=== PATIENT | female | born 1945 | race Caucasian/White ===

== ENCOUNTER 2025-05-13 13:02 | Outpatient (AMB) | payer OTHER, SELFPAY ==
--- NOTE | 2025-05-13 14:11 | A.OFFPC_ITS ---
Vital Signs 05/13/25 14:20 05/13/25 17:35 Height 4 ft 10.9 in Weight 197 lb 8 oz BMI 40.0 BP 140/68 H 125/68 Blood Pressure Location Rt femoral Position Sitting Respiration 16 Pulse 57 Pulse Source Pulse Oximeter Temp 97.1 F Temp Source Temporal Artery Scan Pulse Oximetry (%) 97 Oxygen Delivery Method Room Air Intake Visit Reasons: Establish care Medical Imaging Specialist Required: No Accompanied by: Self / Same As Patient Allergies ciprofloxacin (From Cipro) Allergy (Mild, Verified 05/13/25 17:35) Rash Sulfa (Sulfonamide Antibiotics) Allergy (Mild, Verified 05/13/25 17:35) Rash Medication List - Last Reconciled 05/13/25 by Kaylyn Lira PA-C aspirin 81 mg PO DAILY atorvastatin (Lipitor) 40 mg PO DAILY carvedilol 6.25 mg PO BID metformin ER (Glucophage XR) 500 mg PO DAILY mycophenolate mofetil 250 mg PO BID Tobacco use date assessed: 05/13/25 Fall risk assessment: No Falls in past year Last assessed Fall Risk: 05/13/25 Dental Screening Dental Screen Date: 05/13/25 Did you have a dental visit in the last 12 months?: Yes Did you have a dental problem in the last 6 months where you did not have access to dental care?: No Was dental information given to patient?: Patient has dentist HPI Establish care HPI Details The patient is a 79-year-old female presenting with the management of chronic conditions, including coronary artery disease and liver lesion, along with routine health maintenance. The patient has a history of coronary artery disease, which was identified following a heart attack in 2022 while residing in [place]. The heart attack was managed medically without the need for stent placement, and she is currently on aspirin, Lipitor, and carvedilol for management. She denies any history of hypertension. A liver lesion was identified during an MRI conducted on March 07, 2023, just before the patient moved to her current location. The lesion is being monitored, and the patient is advised to have follow-up imaging annually. The patient has a history of diabetes, with an A1c level of 6.6, which was confirmed during this visit. She is currently on metformin for management and reports dietary modifications to control her blood glucose levels. The patient underwent a hysterectomy at the age of 73 due to abnormal uterine bleeding, and the procedure was performed to rule out malignancy. Social History - Family: Lives near family, including david busch and grandchildren, after moving back from [place]. - Housing: Recently relocated to be clos er to family. [facility] Medical History (Updated 05/13/25 @ 17:41 by Kaylyn Lira PA-C) Type 2 diabetes mellitus with hemoglobin A1c goal of less than 7.0% Liver disease NSTEMI (non-ST elevated myocardial infarction) Coronary artery disease H/O mammogram Surgical History H/O colonoscopy Family History Father S/P 2-vessel coronary artery bypass Mother No problems noted. Other H/O mammogram Social History Housing: House Alcohol intake: current Alcohol intake frequency: does not drink Patient Tobacco Use Status: Never used Tobacco service: No Current occupational status: retired Cognitive needs: No Hearing needs: No Vision needs: Yes (rx glasses/cheaters) Questionnaire PHQ-9 Over the last 2 weeks, how often have you been bothered by any of the following problems? 1. Little interest or pleasure in doing things: not at all 2. Feeling down, depressed, or hopeless: not at all 3. Trouble falling or staying asleep, or sleeping too much: not at all 4. Feeling tired or having little energy: not at all 5. Poor appetite or overeating: not at all 6. Feeling bad about yourself - or that you are a failure or have let yourself or your family down: not at all 7. Trouble concentrating on things, such as reading the newspaper or watching television: not at all 8. Moving or speaking so slowly that other people could have noticed. Or the opposite - being so fidgety or restless that you have been moving around a lot more than usual: not at all 9. Thoughts that you would be better off or of hurting yourself in some way: not at all Total score: 0 Depression Screening Interpretation: Negative Depression Screening Done: Yes 32859 - PHQ-9 Billing: Yes Source: Developed by Drs. Saulo Bryan, Cornelia Alvares, Noel Cuevas and colleagues, with an educational john from [employer]. Thrive Questionnaire Date Thrive assessed: 05/13/25 I am a: Patient What is your living situation today?: I have a steady place to live Within the past 12 months, did the food you bought not last and you didn't have the money to get more?: Never true Within the past 12 months, did you worry whether your food would run out before you got money to buy more?: Never true Do you have trouble paying for medicines?: No Do you have trouble getting transportation to medical appointments?: No Do you have trouble paying your heating and electricity bill?: No Do you have trouble taking care of your child, family member or friend?: No Do you have trouble with day-to-day activities such as bathing, preparing meals, shopping, managing finances, etc.?: No Are you currently unemployed and looking for a job?: No Are you interested in more education?: No Please select the resources that you would like help with: None Currently or been in a relationship where the following occur: No concerns reported THRIVE Score: 0 AUDIT C Alcohol Use Questionnaire (AUDIT-C) 1. How often do you have a drink containing alcohol?: Never 3. How often do you have six or more drinks on one occasion?: Never Total Score: 0 Score Reviewed/Action Taken: No ADDISON-7 AMB Questionnaire ADDISON-7 Date ADDISON - 7 assessed: 05/13/25 Feeling nervous, anxious, or on edge: 0 = Not at all Not being able to stop or control worryin = Not at all Worrying too much about different things: 0 = Not at all Trouble relaxin = Not at all Being so restless that it is hard to sit still: 0 = Not at all Becoming easily annoyed or irritable: 0 = Not at all Feeling afraid as if something awful might happen: 0 = Not at all Total ADDISON-7 score (0-4 normal; 5-9 mild; 10-14 moderate; 15-21 severe): 0 Source: Developed by Cornelia Pederson, Noel Cuevas and colleagues, with an educational john from [employer]. ADDISON-7 Assessment Billing ADDISON-7 Assessment Tool: ADDISON-7 Assessment 18403 Review of Systems Const Details: - Cardiovascular: Denies chest pain, orthopnea, or syncope. - Gastrointestinal: Denies abdominal pain, black or bloody stools. - Genitourinary: Denies dysuria or hematuria. - Musculoskeletal: Reports occasional swelling in the left leg, denies pain. All systems reviewed & are unremarkable except as noted in HPI and below Physical exam (Primary Care) Vital Signs: Last Vital Signs Temp 97.1 F 05/13/25 14:20 Pulse 57 05/13/25 14:20 Resp 16 05/13/25 14:20 BP 140/68 H 05/13/25 14:20 Pulse Ox 97 05/13/25 14:20 Oxygen Delivery Method Room Air 05/13/25 14:20 Care Plan Goal for BP management: <140/90 at Goal BMI result Body Mass Index 40.0 BMI Assessment/Plan discussion: High BMI High, discussed plan: lifestyle, weight reduction, dietary, physical activity, alcohol moderation and other Tobacco/Smoking Status: Tobacco use Status Tobacco use date assessed 05/13/25 05/13/25 14:23 Patient Tobacco Use Status Never used Tobacco 05/13/25 14:23 PHQ-9: PHQ-9 Score PHQ-9: Total score 0 05/13/25 15:10 Depression Screening Interpretation: Negative Thrive Assessment: Date of Thrive Assessment Date Thrive assessed 05/13/25 05/13/25 14:23 Currently or been in a relationship where the following occur: No concerns reported Const Other: Appearance: Alert. Oriented X3. No acute distress. Head: Normal external exam. Normocephalic. Atraumatic. Eyes: Pupils are equal, round, and reactive to light. Extraocular movements intact. Conjunctiva and sclera normal. Eyelids normal. Ears: External auditory canal normal. Tympanic membranes normal. Throat: Pharynx normal. Uvula midline. Moist mucous membranes. Neck: Normal inspection. Neck supple. Full range of motion. No adenopathy. Thyroid Normal. No meningeal signs. No neck mass noted. Cardiovascular: Normal heart rate and rhythm. Heart sound normal. No murmurs noted. Pulses normal throughout. Blood pressure was initially 140/68, rechecked to 125/68. Respiratory: No respiratory distress. Painless inspiration. Breath sounds normal. No wheezes/rales/rhonchi noted. Chest nontender. No accessory muscle usage noted or decreased air movement noted. Abdomen: Soft and nontender. Bowel sounds normal in all 4 quadrants. No distention noted. No organomegaly noted. No visible injury noted. Back: No costovertebral angle tenderness. Full range of motion noted. Skin: Skin warm and dry. Normal skin color. Normal skin turgor. No rashes/lesions/lacerations noted. Extremities: No lower extremity edema. Extremities exhibit normal range of motion. Extremities nontender. Neuro: Oriented X 3. No motor deficit. No sensory deficit. Reflexes normal. Results AMB Hemoglobin A1c AMB Hemoglobin A1c 6.6 % Last Edit by Ye Tam MA on 05/13/25 15 :12 Results Reviewed Results Reviewed: Laboratory Last Values Hgb A1c (Clinic) 6.6 % (4.0-6.0) H 05/13/25 14:56 - Labs: A1c level of 6.6 indicating diabetes. - Imaging: MRI of the liver conducted on March 07, 2023, identified a lesion. Coding Level of Care Code New Pt Level 4 (88509) Complex EM visit Add On G2211 Diagnoses Coronary artery disease I25.10 Liver disease K76.9 Type 2 diabetes mellitus with hemoglobin A1c goal of less than 7.0% E11.9 Additional Codes PHQ-9 - 30449 - PHQ-9 Billing: Yes ([id number]) ADDISON-7 Assessment Billing - ADDISON-7 Assessment Tool: ADDISON-7 Assessment 94246 ([id number]) Time Spent (min) 50 Assessment & Plan Assessment & Plan (1) Coronary artery disease: Code(s): I25.10 - Atherosclerotic heart disease of [place] coronary artery without angina pectoris Category: Medical Plan: The patient will continue current medications including aspirin, Lipitor, and carvedilol for coronary artery disease management. A referral to a jewel stripper has been made for further evaluation and management. (2) Liver disease: Comment: Has yearly MRI's of Liver by GI Code(s): K76.9 - Liver disease, unspecified Category: Medical Plan: The liver lesion will be monitored with annual imaging as recommended by the previous GI specialist. A referral to a new coating line worker has been initiated for continued care. (3) Type 2 diabetes mellitus with hemoglobin A1c goal of less than 7.0%: Code(s): E11.9 - Type 2 diabetes mellitus without complications Category: Medical Plan: The patient will continue metformin and dietary modifications to manage diabetes. Follow-up A1c testing is recommended every three months to monitor glycemic control. Plan Plan Patient was informed and verbally consented to the use of an ambient scribe for clinic note documentation during this visit. 1. Coronary Artery Disease The patient will continue current medications including aspirin, Lipitor, and carvedilol for coronary artery disease management. A referral to a jewel stripper has been made for further evaluation and management. 2. Liver Lesion The liver lesion will be monitored with annual imaging as recommended by the previous GI specialist. A referral to a new coating line worker has been initiated for continued care. 3. diabetes The patient will continue metformin and dietary modifications to manage prediabetes. Follow-up A1c testing is recommended every three months to monitor glycemic control. During the visit, I discussed the management of coronary artery disease, emphasi zing the importance of medication adherence and the need for cardiology follow- up. We also reviewed the liver lesion monitoring plan, including annual imaging and referral to a coating line worker. For prediabetes, I advised continuing metformin and dietary modifications, with regular A1c monitoring every three months. Orders: Orders C Reactive Protein Today Z00.00 - Encounter for general adult medical examination without abnormal findings Comprehensive [place]. Panel Fast Today Z00.00 - Encounter for general adult medical examination without abnormal findings Vitamin B12 and Folate Today Z00.00 - Encounter for general adult medical examination without abnormal findings Vitamin D 25-OH Total Today Z00.00 - Encounter for general adult medical examination without abnormal findings Complete Blood Count Auto Diff Today Z00.00 - Encounter for general adult medical examination without abnormal findings Magnesium Today Z00.00 - Encounter for general adult medical examination without abnormal findings TSH reflex Free T4 Today Z00.00 - Encounter for general adult medical examination without abnormal findings Lipid Panel Today Z00.00 - Encounter for general adult medical examination without abnormal findings Liver Panel Today Z00.00 - Encounter for general adult medical examination without abnormal findings AMB Hemoglobin A1c Today Z13.9 - Encounter for screening, unspecified Referrals Gastroenterology Referral K76.9 - Liver disease, unspecified Cardiology Referral I21.4 - Non-ST elevation (NSTEMI) myocardial infarction, I25.10 - Atherosclerotic heart disease of [place] coronary artery without angina pectoris Patient Instructions: - Continue taking aspirin, Lipitor, and carvedilol as prescribed. - Schedule follow-up appointments with jewel stripper and coating line worker. - Maintain dietary modifications and monitor blood glucose levels regularly. - Return for A1c testing every three months.
[2025-05-13 14:20] VITALS: BP 140/68; PULSE 57; RESP 16; TEMP 36.2; O2SAT 97; BMI 40.0
[2025-05-13 17:35] VITALS: BP 125/68
== END 2025-05-13 15:06 | disposition home or self-care (01) ==
LOC: HO.HMCSH 13:02
PROVIDERS: PCP Internal Medicine; Visit Provider Physician Assistant Medical
DX: I25.10 Atherosclerotic heart disease of native coronary artery without angina pectoris (principal); K76.9 Liver disease, unspecified; E11.9 Type 2 diabetes mellitus without complications; Z13.9 Encounter for screening, unspecified

== ENCOUNTER → 2025-05-13 13:02 | Outpatient (BNVA) | payer MEDICARE, SELFPAY | PROVIDERS: PCP Internal Medicine; Visit Provider Physician Assistant Medical | DX: I25.10 Atherosclerotic heart disease of native coronary artery without angina pectoris (principal); I25.2 Old myocardial infarction; E11.9 Type 2 diabetes mellitus without complications; K76.9 Liver disease, unspecified | CPT/HCPCS: 83036; 96127 ==

== ENCOUNTER 2025-06-14 12:46 | Emergency (ER) | payer MEDICARE, SELFPAY ==
--- NOTE | ~2025-06-14 | CT_ITS ---
EXAMINATION: CT ABDOMEN AND PELVIS WITH CONTRAST CLINICAL INFORMATION: Left lower quadrant pain and nausea. COMPARISON: None available. TECHNIQUE: Multidetector volumetric images were obtained from the superior aspect of the liver through the pubic symphysis following administration 85 mL of Omnipaque 350 intravenous contrast. Sagittal and coronal reformatted images were obtained on the technologist's workstation. Oral contrast: No This CT examination was performed using dose optimization techniques as appropriate, variously including the following: *Automated exposure control *Adjustment of mA and/or kV according to patient size (this includes techniques or standardized protocols for targeted exams where dose is matched to indication/reason for exam; i.e. extremities or head) *Use of iterative reconstruction technique FINDINGS: LUNG BASES: Lung bases demonstrate minor scarring. There are no effusions. Heart size is normal. Small type I hiatus hernia suspected. LIVER, GALLBLADDER, AND BILIARY TREE: The liver demonstrates a somewhat macrolobulated shape suggestive of early cirrhosis. There are several small cysts present, the largest in the right hepatic lobe, segment 7, measuring 3.2 cm. There are no suspicious hepatic lesions evident. There is no intrahepatic biliary dilatation. The gallbladder is unremarkable with no evidence of radiopaque gallstones, gallbladder wall thickening, or obvious pericholecystic inflammatory changes. PANCREAS: Unremarkable. SPLEEN: Unremarkable. ADRENAL GLANDS: Unremarkable. KIDNEYS AND URETERS: There are bilateral parapelvic cysts in both kidneys. There is no hydronephrosis or hydroureter. There is a 4 mm nonobstructing calculus in the right kidney upper pole. There are 2 3 mm nonobstructing calculi in the left kidney. There is no evidence of renal mass. BLADDER: Essentially decompressed. Grossly normal. GASTROINTESTINAL TRACT: The colon is normal in course and caliber without evidence of wall thickening or inflammation. The rectum is normal. There is no CT evidence of appendicitis. Small bowel is normal in caliber and course, with normal appearance. The stomach is somewhat decompressed. The duodenum is normal. ABDOMINAL WALL: No significant hernia is appreciated. LYMPH NODES: There is no abnormal lymphadenopathy present. VASCULAR: Mild to moderate atheromatous calcification of the aorta and iliac arteries. There is no aneurysm. PELVIC VISCERA: There has been a hysterectomy. There are no adnexal masses. OSSEOUS STRUCTURES: There is no suspicious lytic or blastic bone lesion. There are degenerative changes throughout the spine. Severe disc degeneration at L3-4 and L5-S1. Significant degenerative SI joint changes left greater than right. CT/CT abdomen pelvis w IV con IMPRESSION: 1. No acute findings in the abdomen or pelvis. 2. Nonobstructing nephrolithiasis bilaterally. 3. 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 No suspicious liver lesion. No biliary dilatation. 4. Hysterectomy. 5. Additional ancillary findings as discussed in the body of the report. Electronically signed by: Jameson Knutson MD 06/14/2025 04:40 PM EDT
[2025-06-14 12:58] VITALS: BP 152/70; PULSE 62; RESP 16; TEMP 36.6; O2SAT 96; BMI 36.9
--- NOTE | 2025-06-14 12:59 | ED.GENADULT ---
HPI - General Adult General Chief complaint: Abdominal Pain Stated complaint: left sided pain Time Seen by Provider: 06/14/25 15:33 Source: patient Mode of arrival: ambulatory Limitations: no limitations History of Present Illness ED Provider: Nura Hussein PA-C HPI narrative: 71-year-old female with history of CAD, DM 2, history of kidney stones, history of hysterectomy in the past who presents to the ER for evaluation of left lower quadrant pain that started this morning. Pain is currently an 8/10 and associated with nausea. She had a hard bowel movement yesterday, she has been constipated and having small amounts of hemorrhoidal bleeding. No fever, chills, dysuria, back pain. She did have dark urine today with small amount of blood, no clots. hx kidney stones and she reports pain was not similar to kidney stone pain. MD complaint: LLQ Pain and nausea Onset (ago): hour(s) Location: abdomen Radiation: non-radiation Severity: moderate Severity scale (1-10): 8 Quality: aching, sharp and constant Pain Consistency: constant Relieving factors: none Exacerbating factors: none Associated symptoms: nausea/vomiting Treatments prior to arrival: none Related Data Home Medications ?Medication ?Instructions ?Recorded ?Confirmed aspirin 81 mg tablet 81 mg PO DAILY 05/13/25 05/13/25 atorvastatin 40 mg tablet (Lipitor) 40 mg PO DAILY 05/13/25 05/13/25 carvedilol 6.25 mg tablet 6.25 mg PO BID 05/13/25 05/13/25 metformin 500 mg tablet,extended 500 mg PO DAILY 05/13/25 05/13/25 release 24 hr (Glucophage XR) mycophenolate mofetil 250 mg 250 mg PO BID 05/13/25 05/13/25 capsule Allergies Allergy/AdvReac Type Severity Reaction Status Date / Time ciprofloxacin (From Cipro) Allergy Mild Rash Verified 06/14/25 12:59 Sulfa (Sulfonamide Allergy Mild Rash Verified 06/14/25 12:59 Antibiotics) Review of Systems Review of Systems: Yes all other systems are reviewed and are negative [facility] Past Medical History Medical History (Updated 06/14/25 @ 17:38 by CECILIA Díaz) Type 2 diabetes mellitus with hemoglobin A1c goal of less than 7.0% Liver disease NSTEMI (non-ST elevated myocardial infarction) Coronary artery disease H/O mammogram Surgical History H/O colonoscopy Family History Family History Father S/P 2-vessel coronary artery bypass Mother No problems noted. Other H/O mammogram Social History Social History Housing: House Alcohol intake: current Alcohol intake frequency: does not drink Patient Tobacco Use Status: Never used Tobacco Smoked in Last 30 Days: No Use of substances other than those prescribed or required for medical reasons: No Advance Directives: No Advance Directives Information Provided: Yes Do you have a plan to hurt others: No Plan service: No Current occupational status: retired Cognitive needs: No Hearing needs: No Vision needs: Yes (rx glasses/cheaters) Physical Exam ED Exam Exam: Appearance: Alert. Oriented X3. No acute distress. Head: normocephalic, atraumatic. Eyes: Pupils equal, round and reactive to light. ENT: Pharynx normal. No tonsillar swelling or exudate. Neck: Normal inspection. Neck supple. CVS: Normal heart rate and rhythm. Pulses normal. Respiratory: No respiratory distress. Breath sounds normal. Abdomen: Soft with mild tenderness of the LLQ, no rebound or guarding. normal active +BS x4 Skin: Skin warm and dry. Normal skin color. Normal skin turgor. No rashes. Extremities: No lower extremity edema. No joint swelling. Neuro/psych: Oriented X 3. No motor deficit. No sensory deficit. CN II-XII intact. Normal speech and cognition. Vital Signs: Vital Signs - 24 hr 06/14/25 12:58 06/14/25 14:54 06/14/25 17:54 Temperature 97.8 F 98.2 F 98.2 F Pulse Rate 62 64 64 Respiratory Rate 16 18 18 Blood Pressure 152/70 H 155/71 H 155/71 H Pulse Oximetry 96 97 97 Oxygen Delivery Method Room Air Room Air Room Air BMI result Body Mass Index 36.9 Course Course Course Narrative: Rapid medical examination performed in triage by Sierra Azul PA-C. Patient is a 79 year old assigned female at presenting to the emergency department with left lower abdominal pain and nausea. Patient states she woke up with left lower abdominal pain and nausea that is not improving. Detailed physical exam and review of systems are deferred to the perioperative tech. Labs ordered. Patient placed back in the waiting room pending room availability and results. Medications Administered Discontinued Medications Generic Name Dose Route Start Last Admin Trade Name Gilmer PRN Reason Stop Dose Admin Sodium Chloride 1,000 mls @ 999 mls/hr 06/14/25 15:45 06/14/25 16:49 Ns IV 06/14/25 16:45 Infused .Q1H1M MADELINE Infusion Acetaminophen 1,000 mg in 100 mls @ 400 mls/hr 06/14/25 15:40 06/14/25 16:15 Ofirmev IV 06/14/25 15:54 Infused ONCE ONE Infusion Iohexol 100 ml 06/14/25 16:13 06/14/25 16:13 Iohexol 350 Mg/Ml 100 Ml Infus..Btl IV 06/14/25 16:14 85 ml ONCE ONE Administration Ondansetron HCl 4 mg 06/14/25 15:40 06/14/25 15:59 Ondansetron Hcl 4 Mg/2 Ml Vial IVPUSH 06/14/25 15:41 4 mg ONCE ONE Administration Medical Decision Making Medical Decision Making MDM Narrative: 79-year-old female presents to the ER for evaluation of left lower quadrant pain that started this morning. She was constipated yesterday and had a hard bowel movement with small amount of blood. No BM since. She has been nauseous today without vomiting. No history of diverticulitis. She reports history of small masses on her liver for which she has had multiple MRIs and follows with Gastroenterology. Today her LFTs are slightly elevated. She has no right upper quadrant pain, no epigastric pain. Low suspicion for hepatic or biliary etiology. She has some mild tenderness left lower quadrant only. No rebound or guarding. Not an acute abdomen. Her vital signs are stable. Lab workup shows a normal white blood cell count, no anemia. CT scan of the abdomen was performed which did not show any acute causes of her symptoms. She does have some small kidney stones within the kidneys. She has small amount of blood in her urine, without sign of infection. She may have transiently passed a stone which caused her symptoms. She is feeling better after fluids and Tylenol. At this time comfortable discharge home, bowel regimen encouraged, monitoring of symptoms and bland diet encouraged. She will follow-up with her mothers helper in July as scheduled. Return precautions were discussed. Stable for discharge home Differential Diagnosis Differential Diagnoses: The differential diagnosis associated with the presentation includes diverticulitis, constipation, kidney stone, UTI, pyelonephritis, colonic mass Admission/Observation Consideration of admission/observation: Escalation of care including admission/observation considered Lab Data MDM Lab Attestation statement: I reviewed the patient's lab results. elevated LFTs 06/14/25 13:06 06/14/25 13:06 Labs: Lab Results 06/14/25 06/14/25 Range/Units 13:06 15:37 WBC 7.7 (4.8-10.8) X10*3/uL RBC 5.85 H (4.20-5.50) X10*6/uL Hgb 14.3 (12.0-16.0) g/dl Hct 46.9 (37.0-47.0) % MCV 80.2 (80.0-98.0) fL MCH 24.4 L (27.0-33.0) pg MCHC 30.5 L (31.0-35.0) g/dl RDW 15.9 (11.0-16.0) % Plt Count 221 (160-400) X10*3/uL MPV 11.3 (9.4-12.3) fL Immature Gran % (Auto) 0.1 (0.0-0.4) % Neut % (Auto) 71.3 (45-73) % Lymph % (Auto) 21.3 (20-40) % [place] % (Auto) 5.0 (2-11) % Eos % (Auto) 1.8 (0-4) % Baso % (Auto) 0.5 (0-2) % Lymph # (Auto) 1.6 (1.2-4.9) X10*3/uL [place] # (Auto) 0.4 (0.1-1.2) X10*3/uL Eos # (Auto) 0.1 (0.0-0.4) X10*3/uL Baso # (Auto) 0.0 (0.0-0.2) X10*3/uL Abs Immat Gran (auto) 0.01 (0.00-0.03) X10*3/uL Absolute Neuts (auto) 5.5 (2.0-8.3) x10*3/uL Absolute Nucleated RBC 0.000 (0.0-0.012) X10*3/uL Nucleated RBC % (auto) 0.0 (0.0-0.2) /100WBC Sodium 143 (135-145) mmol/L Potassium 4.6 (3.3-5.1) mmol/L Chloride 109 H (96-108) mmol/L Carbon Dioxide 28 (22-29) mmol/L Anion Gap 11 L (12-20) BUN 19 H (9-16) mg/dL Creatinine 0.70 (0.5-1.4) mg/dL Estim Creat Clear Calc 64.3 Estimated GFR > 60 Random Glucose 153 H (60-115) mg/dL Calcium 10.2 (8.4-10.2) mg/dL Total Bilirubin 1.5 H (0.0-1.0) mg/dL AST 37 H (5-31) U/L ALT 38 H (0-31) U/L Alkaline Phosphatase 113 (39-117) U/L Total Protein 6.8 (6.5-8.0) g/dL Albumin 4.2 (3.5-5.0) g/dL Urine Color Melvin A Urine Appearance Cloudy Urine pH 5.0 (5.0-9.0) Ur Specific [place] 1.020 (1.005-1.025) Urine Protein 100 (2+) H (Neg-Trace) mg/dL Urine Glucose (UA) Negative (Negative) mg/dL Urine Ketones Negative (Negative) mg/dL Urine Blood Large (3+) H (Negative) Urine Nitrite Negative (Negative) Ur Leukocyte Esterase Small (1+) H (Negative) Urine RBC >20 H (0-2) /HPF Urine WBC 0-5 (0-5) /HPF Ur Squamous Epith Cells 6-10 (0-2) /HPF Urine Bacteria Trace (None Seen) Hyaline Casts 0-2 (0-2) /LPF Independent Interpretation I performed an independent interpretation of an: CT Scan Interpretation: no appreciated obstruction, no appreciated colonic stranding or abscess Radiology Impression Discussion of test interpretation with radiology: I have reviewed the radiologist's reading. Independent Historian Clinical information obtained from an independent historian. History obtained from or confirmed by: Spouse External Record Review External record reviewed: Prior outpatient labs Prescription Management I considered prescription management with: Pain Medication and Antibiotic Chronic Conditions Patient?s care impacted by: Diabetes Critical Care Time Critical Care Time Critical Care Time: No Discharge Plan Discharge Clinical Impression: Abdominal pain Qualifiers: Abdominal location: left lower quadrant Qualified Code(s): R10.32 - Left lower quadrant pain Patient Disposition: Home, Self-Care Instructions: Abdominal Pain (ED) Additional Instructions: Your lab work today showed mildly elevated liver testing with small amount of blood in the urine. Otherwise lab work was unremarkable. CT scan did not show any causes of the pain in her left lower abdomen. Recommend trial of bowel regimen including MiraLax, Colace, senna. Make sure you are staying hydrated. Stick to a bland diet for the next 24-48 hours, advance as tolerated. Follow-up with your GI doctor and primary care doctor. If you develop new or worsening symptoms call 911 or come back to the ER for further evaluation. Prescriptions: No Action atorvastatin [Lipitor] 40 mg tablet 40 mg PO DAILY carvedilol 6.25 mg tablet 6.25 mg PO BID Rx Instructions: must administer with a meal/food mycophenolate mofetil 250 mg capsule 250 mg PO BID aspirin 81 mg tablet 81 mg PO DAILY metformin [Glucophage XR] 500 mg tablet extended release 24 hr 500 mg PO DAILY Referrals: Kenny Luu MD [Primary Care Provider, Internal Medicine] Interventions: ED Discharge Assessment Last Done: 06/14/25 17:54 Discharge Date/Time: 06/14/25 17:55 Print Language: Ethiopian
[2025-06-14 13:12] LABS: MANUAL DIFF FLAG NO
[2025-06-14 13:14] LABS: Hematocrit 46.9 % (37.0-47.0); Hemoglobin 14.3 g/dl (12.0-16.0); Imm Gran Abs Auto 0.01 X10*3/uL (0.00-0.03); Imm Gran Pct Auto 0.1 % (0.0-0.4); Lymphocytes Absolute Auto 1.6 X10*3/uL (1.2-4.9); Mean Corpuscular HGB Conc 30.5 g/dl (31.0-35.0); Mean Corpuscular Hemoglobin 24.4 pg (27.0-33.0); Mean Corpuscular Volume 80.2 fL (80.0-98.0); NRBC Abs Auto 0.000 X10*3/uL (0.0-0.012); NRBC Pct Auto 0.0 /100WBC (0.0-0.2); Platelet Count 221 X10*3/uL (160-400); Red Blood Count 5.85 X10*6/uL (4.20-5.50); White Blood Count 7.7 X10*3/uL (4.8-10.8)
[2025-06-14 13:27] LABS: Alanine Aminotransferase 38 U/L (0-31); Albumin Level 4.2 g/dL (3.5-5.0); Alkaline Phosphatase 113 U/L (39-117); Anion Gap 11 (12-20); Aspartate Amino Transferase 37 U/L (5-31); Blood Urea Nitrogen 19 mg/dL (9-16); Calcium 10.2 mg/dL (8.4-10.2); Carbon Dioxide 28 mmol/L (22-29); Chloride 109 mmol/L (96-108); Creatinine Clr Calc Pharmacy 64.3; Estimated Glomerular Filt Rate > 60; Potassium 4.6 mmol/L (3.3-5.1); Sodium 143 mmol/L (135-145); Total Protein 6.8 g/dL (6.5-8.0)
[2025-06-14 14:54] VITALS: BP 155/71; PULSE 64; RESP 18; TEMP 36.8; O2SAT 97
[2025-06-14 16:07] LABS: Appearance Urine Cloudy; Glucose Urine UA Negative (Negative); PH 5.0 (5.0-9.0); Specific Gravity - Urine 1.020 (1.005-1.025); UMIC TRIGGER UACC YES
[2025-06-14 16:13] LABS: UACC Culture Trigger YES
[2025-06-14] MEDS: iohexoL 350 MG/ML 100 ML INFUS..BTL IV (16:13)
[2025-06-14 17:54] VITALS: BP 155/71; PULSE 64; RESP 18; TEMP 36.8; O2SAT 97
== END 2025-06-14 17:55 | disposition home or self-care (01) ==
PROVIDERS: Physician Assistant Medical; Emergency Provider Emergency Medicine; PCP Internal Medicine
DX: R10.32 Left lower quadrant pain (principal); R11.2 Nausea with vomiting, unspecified; I25.10 Atherosclerotic heart disease of native coronary artery without angina pectoris; Z79.899 Other long term (current) drug therapy
CPT/HCPCS: 36415; 74177; 80053; 81001; 81003; 85025; 87086; 96361; 96374; 96375; 99284; 99285; J0131; J2405; Q9967

== ENCOUNTER → 2025-06-14 15:40 | Outpatient (BNV) | payer MEDICARE, SELFPAY | PROVIDERS: Emergency Provider Emergency Medicine; PCP Internal Medicine; Visit Provider Radiology Diagnostic Radiology | DX: N20.0 Calculus of kidney (principal) | CPT/HCPCS: 74177 ==

== ENCOUNTER 2025-07-20 08:18 | Outpatient (REF) | payer MEDICARE, SELFPAY ==
[2025-07-20 10:16] LABS: MANUAL DIFF FLAG NO
[2025-07-20 10:41] LABS: Hematocrit 47.3 % (37.0-47.0); Hemoglobin 13.9 g/dl (12.0-16.0); Imm Gran Abs Auto 0.01 X10*3/uL (0.00-0.03); Imm Gran Pct Auto 0.1 % (0.0-0.4); Lymphocytes Absolute Auto 2.3 X10*3/uL (1.2-4.9); Mean Corpuscular HGB Conc 29.4 g/dl (31.0-35.0); Mean Corpuscular Hemoglobin 24.0 pg (27.0-33.0); Mean Corpuscular Volume 81.7 fL (80.0-98.0); NRBC Abs Auto 0.000 X10*3/uL (0.0-0.012); NRBC Pct Auto 0.0 /100WBC (0.0-0.2); Platelet Count 222 X10*3/uL (160-400); Red Blood Count 5.79 X10*6/uL (4.20-5.50); White Blood Count 6.9 X10*3/uL (4.8-10.8)
[2025-07-20 11:19] LABS: Anion Gap 9 (12-20)
[2025-07-20 11:26] LABS: Alanine Aminotransferase 49 U/L (0-31); Albumin Level 4.1 g/dL (3.5-5.0); Alkaline Phosphatase 95 U/L (39-117); Aspartate Amino Transferase 47 U/L (5-31); Blood Urea Nitrogen 23 mg/dL (9-16); Calcium 9.9 mg/dL (8.4-10.2); Carbon Dioxide 30 mmol/L (22-29); Chloride 107 mmol/L (96-108); Cholesterol 123 mg/dL (<200); Estimated Glomerular Filt Rate > 60; HDL Cholesterol 45 mg/dL (>40); Iron 99 mcg/dL (30-160); Magnesium 1.9 mg/dL (1.6-2.6); Percent Iron Saturation 38 % (15-50); Potassium 4.1 mmol/L (3.3-5.1); Sodium 142 mmol/L (135-145); Total Iron Binding Capacity 260 mcg/dL (228-428); Total Protein 6.5 g/dL (6.5-8.0); Triglycerides 82 mg/dL (<150); Unsaturated Iron Binding 161 ug/dL
[2025-07-20 11:36] LABS: Folate 9.5 ng/mL (> or = 4.0); Vitamin B12 198 pg/mL (200-900)
[2025-07-20 11:41] LABS: Ferritin 212 ng/mL (10-250)
== END 2025-07-20 08:19 | disposition home or self-care (01) ==
LOC: HO.HMGCLDS 08:18
PROVIDERS: PCP Internal Medicine; Visit Provider Physician Assistant Medical
DX: Z00.00 Encounter for general adult medical examination without abnormal findings (principal); Z13.6 Encounter for screening for cardiovascular disorders
CPT/HCPCS: 36415; 80053; 80061; 80076; 82248; 82306; 82607; 82728; 82746; 83540; 83735; 84443; 85025; 86140

== ENCOUNTER 2025-07-23 14:08 | Outpatient (AMB) | payer OTHER, SELFPAY ==
--- NOTE | 2025-07-23 14:14 | MHC.OFFVIS ---
Vital Signs 07/23/25 14:21 Height 5 ft Weight 187 lb 6.287 oz BMI 36.6 BP 142/68 H Blood Pressure Location Lt brachial Position Sitting Pulse 60 Intake Visit Reasons: Liver disease, unspecified Intake Note: New patient in office today for liver disease. CC: Patient states that she was been seen by Dr. Lee Nielson in [place] and brought her records with her. She states that Dr. Nielson was never able to figure out what exactly is wrong with her liver. Reports occasional constipation and she takes Miralax to help. Denies other GI symptoms or concerns. Home Health Care Social Worker Required: No Accompanied by: Self / Same As Patient Allergies ciprofloxacin (From Cipro) Allergy (Mild, Verified 08/16/25 11:56) Rash Sulfa (Sulfonamide Antibiotics) Allergy (Mild, Verified 08/16/25 11:56) Rash HPI HPI Liver disease, unspecified: Details: 79-year-old female here for initial evaluation of ?liver disease. ? she is referred by Kaylyn Lira. PMX Diabetes Coronary artery disease History of NSTEMI Family hx of rectal cancer - sister colon polyps nephroliltiasis * SURGICAL HISTORY Colonoscopy - @ 5 years ago Esophagogastroduodenoscopy 07/17/2024= normal esophagus, normal duodenum, focal antral erythema. Hyst Tubal ligation lithotripsy and laser stone removal Cardiac cath * ALLERGIES Cipro - Sulfa - unsure * Direct Hit LABS: 12/2023 at prior facility negative mitochondrial antibody, mildly elevated SMA 41, positive NICOLE of 1-320 homogenous elevated ferritin of 364, never get of hepatitis-B and C scan, normal alpha 1 antitrypsin, AST/ALT 144/186 normal bilirubin Laboratory Tests 05/13/25 07/20/25 14:56 08:24 WBC 6.9 Hgb 13.9 Hct 47.3 H MCV 81.7 MCH 24.0 L MCHC 29.4 L Plt Count 222 Estimated GFR > 60 Fasting Glucose 121 H Hgb A1c (Clinic) 6.6 H Ferritin 212 Total Bilirubin 1.2 H Direct Bilirubin 0.4 AST 47 H ALT 49 H Alkaline Phosphatase [address] abdomen and pelvis 06/14/2025 FINDINGS: LUNG BASES: Lung bases demonstrate minor scarring. There are no effusions. Heart size is normal. Small type I hiatus hernia suspected. LIVER, GALLBLADDER, AND BILIARY TREE: The liver demonstrates a somewhat macrolobulated shape suggestive of early cirrhosis. There are several small cysts present, the largest in the right hepatic lobe, segment 7, measuring 3.2 cm. There are no suspicious hepatic lesions evident. There is no intrahepatic biliary dilatation. The gallbladder is unremarkable with no evidence of radiopaque gallstones, gallbladder wall thickening, or obvious pericholecystic inflammatory changes. PANCREAS: Unremarkable. SPLEEN: Unremarkable. ADRENAL GLANDS: Unremarkable. KIDNEYS AND URETERS: There are bilateral parapelvic cysts in both kidneys. There is no hydronephrosis or hydroureter. There is a 4 mm nonobstructing calculus in the right kidney upper pole. There are 2 3 mm nonobstructing calculi in the left kidney. There is no evidence of renal mass. BLADDER: Essentially decompressed. Grossly normal. GASTROINTESTINAL TRACT: The colon is normal in course and caliber without evidence of wall thickening or inflammation. The rectum is normal. There is no CT evidence of appendicitis. Small bowel is normal in caliber and course, with normal appearance. The stomach is somewhat decompressed. The duodenum is normal. ABDOMINAL WALL: No significant hernia is appreciated. LYMPH NODES: There is no abnormal lymphadenopathy present. VASCULAR: Mild to moderate atheromatous calcification of the aorta and iliac arteries. There is no aneurysm. PELVIC VISCERA: There has been a hysterectomy. There are no adnexal masses. OSSEOUS STRUCTURES: There is no suspicious lytic or blastic bone lesion. There are degenerative changes throughout the spine. Severe disc degeneration at L3-4 and L5-S1. Significant degenerative SI joint changes left greater than right. CT/CT abdomen pelvis w IV con IMPRESSION: 1. No acute findings in the abdomen or pelvis. 2. Nonobstructing nephrolithiasis bilaterally. 3. 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 No suspicious liver lesion. No biliary dilatation. 4. Hysterectomy. 5. Additional ancillary findings as discussed in the body of the report. 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 Sister Breast cancer Other H/O mammogram Social History Housing: House Alcohol intake: current Alcohol intake frequency: does not drink Patient Tobacco Use Status: Never used Tobacco service: No Current occupational status: retired Cognitive needs: No Hearing needs: No Vision needs: Yes (rx glasses/cheaters) Review of Systems Const Denies fatigue, Denies fever(s), Denies night sweats, Denies poor appetite and Denies weight loss Eyes Reports requires corrective lenses ENT Reports Normal hearing present, Denies dental pain, Denies dysphagia, Denies hearing loss, Denies mouth pain, Denies odynophagia, Denies throat swelling, Denies tongue swelling and Reports other (Dentition adequate) GI Details: Denies abdominal pain, Denies melena, Denies bloating, Denies hematochezia, Denies constipation, Denies GI cramping, Denies dysphagia, Denies excessive flatus, Denies early satiety, Denies heartburn, Denies diarrhea, Denies nausea, Denies odynophagia, Denies vomiting and Denies hematemesis Skin/Breast Denies pruritus, Denies lesions, Denies rash and Denies jaundice Neuro Reports Normal hearing present and Denies Abnormal speech present Endo Denies fatigue Aller/Immun Denies throat swelling and Denies tongue swelling Physical Exam Vital Signs: Last Vital Signs Pulse 60 07/23/25 14:21 BP 142/68 H 07/23/25 14:21 BMI result Body Mass Index 36.6 Const General: cooperative, no acute distress, well developed and well groomed Nutritional Appearance: well nourished, obese and overweight Orientation/consciousness: oriented to person, oriented to place and oriented to time Limitations: No language barrier, ambulation with cane, ambulation with walker and wheelchair HEENT Head: Yes normocephalic and Yes atraumatic Eyes General: appearance normal, both eyes and all related structures Pupils: Equal, round and reactive pupils present Neck Neck: Yes normal visual inspection and Yes no lymphadenopathy Thyroid: Thyroid normal Resp Effort & Inspection: normal respiratory effort and able to speak in complete sentences Auscultation: clear to auscultation bilaterally Cardio Rate: regular rate Rhythm: regular rhythm Heart sounds: Normal, physiologic split S2 sound present Peripheral pulses: radial pulses present and posterior tibial pulses present GI Inspection: No distended, Yes Abdominal panniculus present and Yes obesity Palpation (GI): Soft to palpation, nontender, no guarding, not rigid and No hepatosplenomegaly present Percussion: Yes normal to percussion Auscultation: normal bowel sounds Rectal Exam - Female: deferred Skin General skin exam: no rashes or lesions noted, turgor normal, skin not dry, no jaundice, No spider nevi and no striae Rashes: no rashes Nails: normal Neuro General: oriented to person, oriented to place and oriented to time Cranial nerves: Yes Equal, round and reactive pupils present and Yes Normal hearing present Speech: No Abnormal speech present Extrem General: Yes normal to inspection, No clubbing, No cyanosis and No edema Psych Appearance: grossly normal and well kempt Mental Status: mental status grossly normal Speech and movement: Normal speech and movement present Affect: normal affect Attitude: cooperative Thought process: Normal thought process present and not confabulating Thought content: Normal thought content present Insight: Good insight present (Psych) Judgement: Good judgement present (Psych) Assessment & Plan Assessment & Plan (1) Transaminitis: Code(s): R74.01 - Elevation of levels of liver transaminase levels Category: Medical Plan - The patient is a 79-year-old female presenting with liver disease for evaluation and management. - Elevated liver enzymes led to imaging studies, including ultrasound and three MRIs, which have not yielded definitive diagnosis. - Autoimmune hepatitis is considered due to positive NICOLE and muscle antibodies, but a liver biopsy has not been performed. - Discussion considered prednisone for autoimmune hepatitis management; however, the patient declined steroid therapy. - Fatty liver is also considered, given familial prevalence and previous imaging. - Patient has significant comorbidities including diabetes mellitus, hypertension, and a history of NSTEMI, affecting management choices. - Schedule and undergo a liver biopsy as recommended. - Continue Mycophenolate as prescribed. - Monitor liver function tests regularly. - Maintain a balanced diet; continue avoiding alcohol. - Keep current diabetes medications and check blood sugar levels as advised by the healthcare team. - Monitor blood pressure regularly. - Make a follow-up appointment in three months to review test results and reassess treatment. - Watch for symptoms such as jaundice, persistent abdominal pain, or changes in stool color, and seek care promptly if they occur. Orders: Orders Alpha Fetoprotein 07/30/25 R74.01 - Elevation of levels of liver transaminase levels NICOLE Reflex Titer and Pattern 07/30/25 R74. - Elevation of levels of liver transaminase levels Transglutaminase IgA 07/30/25 R74.01 - Elevation of levels of liver transaminase levels Transglutaminase Ab IgG 07/30/25 R74.01 - Elevation of levels of liver transaminase levels HIV Ab/Ag 07/30/25 R74.01 - Elevation of levels of liver transaminase levels Ceruloplasmin 07/30/25 R74.01 - Elevation of levels of liver transaminase levels Prothrombin Time INR 07/30/25 R74.01 - Elevation of levels of liver transaminase levels DNA Analysis Hemochromatosis 07/30/25 R74.01 - Elevation of levels of liver transaminase levels Smooth Muscle Antibody 07/30/25 R74.01 - Elevation of levels of liver transaminase levels Mitochondrial Antibody 07/30/25 R74.01 - Elevation of levels of liver transaminase levels Liver Fibrosis Pnl 07/30/25 R74.01 - Elevation of levels of liver transaminase levels US biopsy liver 07/23/25 R74.01 - Elevation of levels of liver transaminase levels Medications: New mycophenolate mofetil 250 mg PO BID 60 caps 6RF R74.01 - Elevation of levels of liver transaminase levels Coding Level of Care Code New Pt Level 3 (93006) Diagnoses Transaminitis R74.
[2025-07-23 14:21] VITALS: BP 142/68; PULSE 60; BMI 36.6
--- OUTSIDE RECORDS SUMMARY | 2025-07-23 15:57 | XMS_ITS | Patient Health Record ---
Author Organization [facility] Billing Info Address [address] [place] [id number] Care Team Providers Care Field Interviewer Name Role Phone BRITT, FAISAL Primary Care Provider Unavailabl e Allergies Allergen (clinical drug ingredient) Drug/Non Drug Allergy documented on EMR Reaction Allergy Type Onset Date Status ciprofloxacin Cipro rash Drug Allergy Act new Sulfa itching Drug Allergy Active Reason For Referral No Information Medications Medication SIG (Take, Route, Frequency, Duration) Notes Start Date End Date Status Januvia 100 MG 1 tablet Orally Once a day for 30 day(s) Active Aspirin 81 81 MG 1 tablet Orally Once a day for 30 day(s) Active Clopidogrel Bisulfate 75 MG 1 tablet Orally Once a day for 30 day(s) Active Atorvastatin Calcium 40 MG 1 tablet Orally Once a day for 30 day(s) Active Simvastatin 10 MG 1 tablet in the even ing Orally Once a day for 30 day(s) Not-Taking Carvedilol 6.25 MG 1 tablet with food Orally Twice a day for 30 day(s) Active Biotin 5 MG 1 capsule Orally Onc e a day for 30 day(s) Active Problems Problem Type SNOMED Code ICD Code Onset Dates Problem Status W/U Status Risk Notes Problem [id number] Malignant neoplasm of endometrium (C54.1) Active confirmed Clin [facility] from low risk endometrial cancer, doing well. Plan Of Treatment Pending Test Test Name Order Date MAMMO- SCR DDI BI (26201)(TRID-MAMSCDDIB I) 11/28/2021 Insurance Providers Payer Name Payer Address Payer Phone Subscriber Number Group Number Insured Name Patient Relationship to Insured Coverage Start Date Coverage End Date [employer] P[employer] MEDICARE PLAN [address] KRISHNA BOWIE [id number] SHABANA SOLIS Self - patient is the insured Medical (General) History Medical History History ICD Code Endometrial cancer T1aN0 grade 1, no adj therapy 04/2019 Hyperlipidemia [place] 12/2021 Surgical History Surgery Date(Month/Year) Robotic hysterectomy, bso- Dr Aviva cui 04/17/19 hysteroscopy D&C 04/06/19 lithotripsy x3 Hospitalization History Reason Date(Month/Year) [place] 12/2021
== END 2025-07-23 15:19 | disposition home or self-care (01) ==
LOC: HO.HGI 14:08
PROVIDERS: PCP Internal Medicine; Visit Provider Nurse Practitioner
DX: R74.01 Elevation of levels of liver transaminase levels (principal)
CPT/HCPCS: 99203

== ENCOUNTER 2025-07-30 10:47 | Outpatient (REF) | payer OTHER, SELFPAY ==
[2025-07-30 13:14] LABS: INTERNATIONAL NORM RATIO 0.9 (0.9-1.1); Prothrombin Time 11.3 SEC (11.2-13.5)
[2025-07-30 14:53] LABS: HIV Num 1 0.05 S/CO (0.00-0.99)
[2025-08-02 22:08] LABS: Transglutaminase Ab IgG <1.0 U/mL
[2025-08-04 07:52] LABS: Anti Nuclear Antibody Pattern Nuclear, Speckled; Anti Nuclear Antibody Screen POSITIVE (NEGATIVE); Anti Nuclear Antibody Titer 1:80 titer
[2025-08-06 01:49] LABS: FIB-ALT 27 U/L (6-29); FIB-Alpha-2-Macroglobulin 205 mg/dL (106-279); FIB-Apolipoprotein A1 178 mg/dL (101-198); FIB-GGT 12 U/L (3-65); FIB-Haptoglobin 139 mg/dL (43-212); FIB-Total Bilirubin 0.8 mg/dL (0.2-1.2); Liver Fibrosis Score 0.24; Liver Fibrosis Stage F0-F1; Nec Inflam Act Grade A0; Nec Inflam Act Score 0.12
== END 2025-07-30 10:48 | disposition home or self-care (01) ==
LOC: HO.HMGCLDS 10:47
PROVIDERS: PCP Internal Medicine; Visit Provider Nurse Practitioner
DX: Z01.84 Encounter for antibody response examination (principal); Z51.81 Encounter for therapeutic drug level monitoring; Z11.4 Encounter for screening for human immunodeficiency virus [HIV]; R74.01 Elevation of levels of liver transaminase levels
CPT/HCPCS: 36415; 81256; 81596; 82105; 82390; 85610; 86015; 86038; 86039; 86364; 86381; 87389

== ENCOUNTER 2025-08-03 06:51 | Day surgery (SDC) | payer MEDICARE, SELFPAY ==
[2025-08-03] VITALS (14 sets, daily range): BP systolic 101–152; BP diastolic 43–83; PULSE 55–68; RESP 13–19; TEMP 36.6–37.1; O2SAT 95–100; BMI 36.0
--- NOTE | ~2025-08-03 | US_ITS ---
EXAMINATION: Ultrasound biopsy liver. CLINICAL INDICATION: Elevation of liver transaminase levels. COMPARISON: CT abdomen and pelvis 06/14/2025. TECHNIQUE: Following explaining ultrasound-guided liver biopsy procedure, benefits and risk, a written consent was obtained. Patient was placed supine slightly tilted towards the left side and preliminary ultrasound imaging through the right abdomen with attention right hepatic lobe was obtained. An optimal site was selected along the mid axillary line in the intercostal space and a marker was placed on the skin. Marked skin site was cleaned and draped in usual sterile manner. 1% local Xylocaine was administered puncture site. Through a small skin incision a 20-gauge guide needle was advanced from the skin through the intercostal space into the right hepatic lobe. Coaxially a 20-gauge biopsy gun was administered and it 3 pass biopsy was performed. Postbiopsy Gelfoam was introduced to the guide needle to achieve hemostasis. Subsequently the guide needle was removed and complete hemostasis achieved at puncture site. Patient tolerated procedure extremely well. FINDINGS: On preliminary ultrasound imaging there is mild increased hepatic echogenicity. There is a small cyst right hepatic cyst measuring 2.5 x 2.2 x 2.0 cm. A 3 pass right hepatic core biopsy was performed adequate tissue obtained. The tissue was sent to the lab as per protocol. US/US biopsy liver IMPRESSION: Successful ultrasound-guided right hepatic core biopsy performed. Electronically signed by: Johnie Dee MD 08/03/2025 03:35 PM MICHAEL
[2025-08-03 07:45] LABS: INTERNATIONAL NORM RATIO 1.0 (0.9-1.1); Prothrombin Time 11.8 SEC (11.2-13.5)
[2025-08-03] MEDS: Lidocaine HCl 1 % MPF 5 ML VIAL SUBCUT (09:31)
== END 2025-08-03 11:29 | disposition home or self-care (01) ==
LOC: HO.SSS 06:52
PROVIDERS: Radiology Diagnostic Radiology; PCP Internal Medicine; Visit Provider Nurse Practitioner
DX: R74.01 Elevation of levels of liver transaminase levels (principal); K73.2 Chronic active hepatitis, not elsewhere classified; K74.01 Hepatic fibrosis, early fibrosis; K75.81 Nonalcoholic steatohepatitis (NASH); K59.00 Constipation, unspecified; Z80.0 Family history of malignant neoplasm of digestive organs; I25.10 Atherosclerotic heart disease of native coronary artery without angina pectoris; I25.2 Old myocardial infarction; E11.9 Type 2 diabetes mellitus without complications; N28.1 Cyst of kidney, acquired; Z87.442 Personal history of urinary calculi; E53.8 Deficiency of other specified B group vitamins; Z88.1 Allergy status to other antibiotic agents; Z88.2 Allergy status to sulfonamides; Z90.710 Acquired absence of both cervix and uterus
CPT/HCPCS: 36415; 47000; 76942; 85610; 86850; 86900; 86901; 88307; 88313; 99152; 99153; J2003; J2250; J3010

== ENCOUNTER → 2025-08-03 08:19 | Outpatient (BNV) | payer MEDICARE, SELFPAY | PROVIDERS: PCP Internal Medicine; Visit Provider Radiology Diagnostic Radiology | DX: R74.01 Elevation of levels of liver transaminase levels (principal) | CPT/HCPCS: 47000; 76942 ==

== ENCOUNTER 2025-08-16 10:20 | Outpatient (AMB) | payer MEDICARE, SELFPAY ==
--- NOTE | 2025-08-16 10:23 | A.OFFPC_ITS ---
Vital Signs 08/16/25 10:25 Weight 188 lb 0.6 oz BP 122/67 Blood Pressure Location Lt brachial Pulse 63 Pulse Source Pulse Oximeter Temp 97.0 F Pulse Oximetry (%) 97 Intake Visit Reasons: 3 month follow up Intake Note: needs order for mammogram, had liver biopsy two weeks ago looking for results and she is loosing her hair. Allergies ciprofloxacin (From Cipro) Allergy (Mild, Verified 08/16/25 11:56) Rash Sulfa (Sulfonamide Antibiotics) Allergy (Mild, Verified 08/16/25 11:56) Rash Medication List - Last Reconciled 08/16/25 by Kaylyn Lira PA-C aspirin 81 mg PO DAILY atorvastatin (Lipitor) 40 mg PO DAILY carvedilol 6.25 mg PO BID cholecalciferol (vitamin D3) 50 mcg PO DAILY cyanocobalamin (vitamin B-12) 1,000 mcg PO DAILY metformin ER (Glucophage XR) 500 mg PO DAILY mycophenolate mofetil 250 mg PO BID polyethylene glycol 3350 (Miralax) 17 grams PO DAILY PRN Tobacco use date assessed: 05/13/25 Dental Screening Dental Screen Date: 05/13/25 HPI HPI Comments History of Present Illness Details History of Present Illness The patient is a 79 year old individual presenting for a three-month follow-up for diabetes. The patient's last HbA1c on May 13, 2025, was 6.6%, and the patient takes metformin 500 mg extended-release once daily. The patient was referred to gastroenterology for elevated liver enzymes and underwent a liver biopsy on August 03. The biopsy results indicate chronic hepatitis with grade II (moderate) inflammation, stage II fibrosis, minimal steatosis, and a benign simple cyst. Pathology suggests findings could be typical of autoimmune hepatitis, viral hepatitis, or drug-induced liver injury. The patient reported experiencing a cough and feeling unwell while living in [place], symptoms which have since resolved. The patient's vitamin B12 level was previously low at 198, and the patient has been taking supplements for approximately three weeks. The patient also reports hair loss, noting a previous medication prescribed by a GI doctor in [place] exacerbated this issue. Regarding health maintenance, the patient is due for a mammogram and a bone density scan. The patient's last colonoscopy was performed in [place] with a recommended 10-year follow-up interval. The patient has a history of a hysterectomy. The patient has achieved a weight loss of approximately 10 pounds since April, from 197 lbs to 188 lbs, by implementing dietary changes such as ceasing to eat at night. Social History - Alcohol and Tobacco Use: The patient d enies alcohol consumption and a history of smoking. - Diet: The patient reports making dieta ry changes, including stopping eating at night, contributing to weight loss. 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 Sister Breast cancer Other H/O mammogram Social History Housing: House Alcohol intake: current Alcohol intake frequency: does not drink Patient Tobacco Use Status: Never used Tobacco service: No Current occupational status: retired Cognitive needs: No Hearing needs: No Vision needs: Yes (rx glasses/cheaters) Questionnaire PHQ-9 Over the last 2 weeks, how often have you been bothered by any of the following problems? 1. Little interest or pleasure in doing things: not at all 2. Feeling down, depressed, or hopeless: not at all 3. Trouble falling or staying asleep, or sleeping too much: not at all 4. Feeling tired or having little energy: not at all 5. Poor appetite or overeating: not at all 6. Feeling bad about yourself - or that you are a failure or have let yourself or your family down: not at all 7. Trouble concentrating on things, such as reading the newspaper or watching television: not at all 8. Moving or speaking so slowly that other people could have noticed. Or the opposite - being so fidgety or restless that you have been moving around a lot more than usual: not at all 9. Thoughts that you would be better off or of hurting yourself in some way: not at all Total score: 0 Depression Screening Interpretation: Negative Depression Screening Done: Yes 61972 - PHQ-9 Billing: Yes Source: Developed by Drs. Saulo Bryan, Cornelia Alvares, Noel Cuevas and colleagues, with an educational john from [employer]. Thrive Questionnaire Date Thrive assessed: 05/13/25 I am a: Patient What is your living situation today?: I have a steady place to live Within the past 12 months, did the food you bought not last and you didn't have the money to get more?: Never true Within the past 12 months, did you worry whether your food would run out before you got money to buy more?: Never true Do you have trouble paying for medicines?: No Do you have trouble getting transportation to medical appointments?: No Do you have trouble paying your heating and electricity bill?: No Do you have trouble taking care of your child, family member or friend?: No Do you have trouble with day-to-day activities such as bathing, preparing meals, shopping, managing finances, etc.?: No Are you currently unemployed and looking for a job?: No Are you interested in more education?: No Please select the resources that you would like help with: None Currently or been in a relationship where the following occur: No concerns reported THRIVE Score: 0 AUDIT C Alcohol Use Questionnaire (AUDIT-C) 1. How often do you have a drink containing alcohol?: Never 3. How often do you have six or more drinks on one occasion?: Never Total Score: 0 Score Reviewed/Action Taken: No ADDISON-7 AMB Questionnaire ADDISON-7 Date ADDISON - 7 assessed: 05/13/25 Feeling nervous, anxious, or on edge: 0 = Not at all Not being able to stop or control worryin = Not at all Worrying too much about different things: 0 = Not at all Trouble relaxin = Not at all Being so restless that it is hard to sit still: 0 = Not at all Becoming easily annoyed or irritable: 0 = Not at all Feeling afraid as if something awful might happen: 0 = Not at all Total ADDISON-7 score (0-4 normal; 5-9 mild; 10-14 moderate; 15-21 severe): 0 Source: Developed by Drs. Saulo Bryan, Cornelia Alvares, Noel Cuevas and colleagues, with an educational john from [employer]. ADDISON-7 Assessment Billing ADDISON-7 Assessment Tool: ADDISON-7 Assessment 39214 Review of Systems Narrative Review of Systems - General: Reports feeling good and having more energy. - Constitutional: Reports weight loss of approximately 10 pounds. - Integumentary: Reports hair loss and hard nails. - Reports bruising on the side from a recent liver biopsy. - Gastrointestinal: Reports a change in bowel habits since starting vitamin B12, sometimes having two bowel movements a day, but feels a sense of incomplete evacuation. Const All systems reviewed & are unremarkable except as noted in HPI and below Physical exam (Primary Care) Vital Signs: Last Vital Signs Temp 97.0 F 08/16/25 10:25 Pulse 63 08/16/25 10:25 BP 122/67 08/16/25 10:25 Pulse Ox 97 08/16/25 10:25 Care Plan Goal for BP management: <140/90 at Goal BMI Assessment/Plan discussion: High BMI High, discussed plan: lifestyle, weight reduction, dietary, physical activity, alcohol moderation and other Tobacco/Smoking Status: Tobacco use Status Tobacco use date assessed 05/13/25 08/16/25 10:31 Patient Tobacco Use Status Never used Tobacco 08/16/25 10:31 PHQ-9: PHQ-9 Score PHQ-9: Total score 0 08/16/25 11:13 Depression Screening Interpretation: Negative Thrive Assessment: Date of Thrive Assessment Date Thrive assessed 05/13/25 08/16/25 10:31 Currently or been in a relationship where the following occur: No concerns reported Narrative Physical Exam Appearance: Alert. Oriented X3. No acute distress. Head: Normal external exam. Normocephalic. Atraumatic. Hair loss noted. Eyes: Pupils are equal, round, and reactive to light. Extraocular movements intact. Conjunctiva and sclera normal. Eyelids normal. Throat: Pharynx normal. Uvula midline. Moist mucous membranes. Neck: Normal inspection. Neck supple. Full range of motion. Cardiovascular: Normal heart rate and rhythm. Respiratory: No respiratory distress. Painless inspiration. Back: Full range of motion noted. Skin: Skin warm and dry. Normal skin color. Normal skin turgor. No rashes/lesions/lacerations noted. Extremities: Extremities exhibit normal range of motion. Neuro: Oriented X 3. No motor deficit. No sensory deficit. Reflexes normal. Office Procedures Flu Questionnaire Does the patient have a severe egg allergy?: No Does the patient have severe life threatening allergies?: No Does the patient have a fever or illness today?: No Has the patient ever had Guillain-[place] Syndrome?: No Has the patient ever had any past reaction to a flu shot?: No Results AMB Hemoglobin A1c AMB Hemoglobin A1c 6.6 % Last Edit by DARELL Vicente on 08/16/25 11:13 Immunizations Fluarix [id number] (PF) 45 mcg (15 mcg x 3)/0.5 mL IM syringe Performing Provider: Kaylyn Lira PA-C Performing Location: [facility] Documented (not given) by: Nga Phillips on 08/16/25 10:33 Reason Not Given: Received Previously Results Reviewed Results Reviewed: Laboratory Last Values Hgb A1c (Clinic) 6.6 % (4.0-6.0) H 08/16/25 11:13 Results - Labs: - HbA1c: 6.6%. - Previous HbA1c (May 13, 2025): 6.6%. - Previous Vitamin B12: 198. - Previous Folate: Normal. - Procedures: - Liver Biopsy Pathology (08/03/xxxx): Findings show chronic hepatitis with grade II (moderate) inflammation and stage II fibrosis with minimal steatosis. - Pathology is suggestive of autoimmune hepatitis, viral hepatitis, or drug- induced liver injury. - No evidence of cirrhosis, iron stain was negative. Coding Level of Care Code Est Pt Level 4 (88012) Complex visit Add On G2211 Diagnoses Type 2 diabetes mellitus with hemoglobin A1c goal of less than 7.0% E11.9 Chronic hepatitis C virus infection with stage 2 hepatic fibrosis B18.2; K74.00 Vitamin B12 deficiency E53.8 Alopecia L65.9 Healthcare maintenance Z00.00 Additional Codes ADDISON-7 Assessment Billing - ADDISON-7 Assessment Tool: ADDISON-7 Assessment 74716 ([id number]) PHQ-9 - 54483 - PHQ-9 Billing: Yes ([id number]) Assessment & Plan Assessment & Plan (1) Type 2 diabetes mellitus with hemoglobin A1c goal of less than 7.0%: Code(s): E11.9 - Type 2 diabetes mellitus without complications Category: Medical Plan: The patient's HbA1c is stable at 6.6%, which is at goal. The patient will continue metformin 500 mg once daily. Due to good glycemic control, the follow- up interval is extended to six months. 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 The etiology is currently unknown, with differentials including autoimmune hepatitis, viral hepatitis, or drug-induced liver injury. The patient will follow up with the urologic nurse, who will likely order further blood tests to determine the underlying cause. The patient was reassured that the scarring is not cirrhosis and the condition is treatable and potentially reversible. (3) Vitamin B12 deficiency: Code(s): E53.8 - Deficiency of other specified B group vitamins Category: Medical Plan: The patient will continue oral vitamin B12 supplementation for a previously low level of 198. B12 levels will be rechecked to ensure proper absorption; if not, monthly B12 injections will be considered. The benefits of B12, including improved energy, brain health, weight management, and digestive regularity, were discussed. (4) Alopecia: Code(s): L65.9 - Nonscarring hair loss, unspecified Category: Medical Plan: With normal thyroid and folate levels, the patient was advised to start a multivitamin with folic acid to address hair loss. The patient was also informed that vitamin B12 supplementation would also support hair and nail growth. The patient declined a trial of Rogaine, preferring a more natural approach. (5) Healthcare maintenance: Code(s): Z00.00 - Encounter for general adult medical examination without abnormal findings Category: Medical Plan: Referrals have been placed for a mammogram and a bone density scan. The patient was advised to obtain records of the previous colonoscopy from [place] to confirm the appropriate follow-up interval. No cervical cancer screening is needed due to a history of hysterectomy. Plan Plan Patient was informed and verbally consented to the use of an ambient scribe for clinic note documentation during this visit. 1. Type 2 Diabetes Mellitus The patient's HbA1c is stable at 6.6%, which is at goal. The patient will yakov nue metformin 500 mg once daily. Due to good glycemic control, the follow-up interval is extended to six months. 2. Chronic Hepatitis With Stage Ii Fibrosis The liver biopsy results showing chronic hepatitis with moderate inflammation and stage 2 fibrosis were reviewed. The etiology is currently unknown, with differentials including autoimmune hepatitis, viral hepatitis, or drug-induced liver injury. The patient will follow up with the urologic nurse, who will likely order further blood tests to determine the underlying cause. The patient was reassured that the scarring is not cirrhosis and the condition is treatable and potentially reversible. 3. Vitamin B12 Deficiency The patient will continue oral vitamin B12 supplementation for a previously low level of 198. B12 levels will be rechecked to ensure proper absorption; if not, monthly B12 injections will be considered. The benefits of B12, including improved energy, brain health, weight management, and digestive regularity, were discussed. 4. Alopecia With normal thyroid and folate levels, the patient was advised to start a multivitamin with folic acid to address hair loss. The patient was also informed that vitamin B12 supplementation would also support hair and nail growth. The patient declined a trial of Rogaine, preferring a more natural approach. 5. Health Maintenance Referrals have been placed for a mammogram and a bone density scan. The patient was advised to obtain records of the previous colonoscopy from [place] to confirm the appropriate follow-up interval. No cervical cancer screening is needed due to a history of hysterectomy. Discussion Notes I discussed with the patient that the HbA1c result of 6.6% is stable and at goal. We will continue metformin 500 mg daily, and given the excellent control, we agreed to extend the follow-up appointment to six months. I reviewed the recent liver biopsy results in detail, explaining the findings of chronic hepatitis with moderate inflammation and stage 2 fibrosis, noting it is a mild, non-cirrhotic, and treatable condition. I outlined the possible causes (autoimmune, viral, or drug-induced) and informed the patient that follow-up with the urologic nurse is necessary to determine the cause and management. We discussed the plan for vitamin B12 deficiency, which includes continuing oral supplements and rechecking levels to assess absorption, with injections as a potential alternative. For hair loss, I recommended a multivitamin with folic acid. I confirmed referrals will be sent for a mammogram and bone density scan and advised the patient to follow up if not contacted within a month. The patient was also advised to try and obtain prior colonoscopy records. Orders: Orders XR DEXA axial skeleton Today M81.0 - Age-related osteoporosis without current pathological fracture Influenza [id number] Immunization Today Z23 - Encounter for immunization MM screening mammo BI Today Z12.31 - Encounter for screening mammogram for malignant neoplasm of breast AMB Hemoglobin A1c Today E11.9 - Type 2 diabetes mellitus without complications Patient Instructions: Patient Instructions - Continue taking Metformin 500 mg once a day for your diabetes. - Continue taking your vitamin B12 supplement as prescribed. - This will help with your energy, memory, and may also help with weight loss and hair growth. - For hair loss, you can take a multivitamin that contains folic acid. - Our office will send referrals for you to get a mammogram and a bone scan. - You should receive a call to schedule these within a month; if not, please contact us. - Please let us know when you need a refill for your Metformin. - You are doing very well with your blood sugar control, so your next follow-up appointment will be in six months. - Your liver specialist (urologic nurse) will contact you about the results of your liver biopsy and plan the next steps.
[2025-08-16 10:25] VITALS: BP 122/67; PULSE 63; TEMP 36.1; O2SAT 97
== END 2025-08-16 11:10 | disposition home or self-care (01) ==
LOC: HO.HMCSH 10:20
PROVIDERS: PCP Internal Medicine; Visit Provider Physician Assistant Medical
DX: E11.9 Type 2 diabetes mellitus without complications (principal); B18.2 Chronic viral hepatitis C; K74.00 Hepatic fibrosis, unspecified; E53.8 Deficiency of other specified B group vitamins; L65.9 Nonscarring hair loss, unspecified; Z00.00 Encounter for general adult medical examination without abnormal findings; Z23 Encounter for immunization

== ENCOUNTER → 2025-08-16 10:20 | Outpatient (BNVA) | payer MEDICARE, SELFPAY | PROVIDERS: PCP Internal Medicine; Visit Provider Physician Assistant Medical | DX: Z00.00 Encounter for general adult medical examination without abnormal findings (principal); E11.9 Type 2 diabetes mellitus without complications; R74.8 Abnormal levels of other serum enzymes; E53.8 Deficiency of other specified B group vitamins; B18.2 Chronic viral hepatitis C; K74.00 Hepatic fibrosis, unspecified; L65.9 Nonscarring hair loss, unspecified; Z28.89 Immunization not carried out for other reason | CPT/HCPCS: 83036; 90471; 96127; 99212 ==